=== PATIENT | male | born 1985 | race Caucasian/White ===

== ENCOUNTER 2017-01-17 06:07 | Day surgery (SDC) | payer OTHER ==
[2017-01-17] MEDS ORDERED: LACTATED RINGERS 1,000 ML IV ONE (07:07)
--- NOTE | 2017-01-17 07:28 | HISTORY & PHYSICAL EXAMINATION ---
HPI - History of Present Illness HPI Comment/Other: Since his last visit he has had one flare up but it resolved spontaneously. Current Meds: NONE Allergies: NONE Past Medical History: Reviewed history from 12/13/2016 and no changes required: Astigmatism Nicotine dependence Liotibial band- Fracture syndrome Pilonidal Cyst Past Surgical History: Reviewed history and no changes required: [place] Infection Removal Family History Summary: Reviewed history and no changes required: 12/14/2016 Mother (biol.) - Has a mother who is alive and well - Entered On: 12/13/2016 Father (biol.) - Has a father - Alcoholism - Entered On: 12/13/2016 Risk Factors: Smoked Tobacco Use: Current every day smoker Cigarettes: Yes -- 1/2 pack(s) per day,Drug use: no Alcohol use: yes Drinks per day: 0-2 Exercise: yes Times per week: 1-3 Type of Exercise: Weights Review of Systems See HPI Problems were reviewed with the patient during this visit. Medications were reviewed with the patient during this visit. No known meds. Allergies were reviewed with the patient during this visit. No known allergies. Physical Exam General: well developed, well nourished, in no acute distress Lungs: clear bilaterally to A & P Heart: regular rate and rhythm, S1, S2 without murmurs, rubs, gallops, or clicks Abdomen: bowel sounds positive; abdomen soft and non-tender without masses, organomegaly, or hernias noted Rectal: 5 midline pilonidal sinuses with the most proximal being connected to a surgical scar with some induration. No evidence of fluctuance or active infection. Pulses: pulses normal in all 4 extremities Extremities: no clubbing, cyanosis, edema, or deformity noted with normal full range of motion of all joints Problems: Problems Added: 1) Dx of Pilonidal cyst ([id number]) (ICD-685.1) Impression & Recommendations: Problem # 1: Pilonidal cyst with multiple recurrent pilonidal infections Will proceed with excision of pilonidal cyst. PMH/PSH - Past Medical History Cardiovascular: positive: None Respiratory: positive: None Endocrine/Autoimmune: positive: None GI: positive: None : positive: None HEENT: positive: None Psych: positive: None Musculoskeletal: positive: None Derm: positive: None MRSA Hx?: No Meds/Allgy - Home Medications Home Medications: Ambulatory Orders Medication Instructions Recorded Confirmed No Known Home Medications [No 01/10/17 01/10/17 Known Home Medications] - Allergies Allergies/Adverse Reactions: Allergies Allergy/AdvReac Type Severity Reaction Status Date / Time No Known Drug Allergies Allergy Verified 01/10/17 13:29 Exam - Vital Signs Vital Signs: Vital Signs x48h Temp Pulse Resp BP Pulse Ox 01/17/17 06:30 36 C L 64 16 128/69 98
[2017-01-17] MEDS ORDERED: ceFAZolin 1 GM VIAL IV ONE (07:45)
[2017-01-17] MEDS ORDERED: MIDAZOLAM 2 MG/2 ML VIAL IVP ONE (07:45)
[2017-01-17] MEDS ORDERED: SODIUM CHLORIDE 0.9% 10 ML VIAL IV ONE (07:45)
[2017-01-17] MEDS ORDERED: ROCURONIUM 50 MG/5 ML VIAL IVP ONE (07:45)
[2017-01-17] MEDS ORDERED: PROPOFOL 200 MG/20 ML VIAL IVP ONE (07:45)
[2017-01-17] MEDS ORDERED: ONDANSETRON 4 MG/2 ML VIAL IVP ONE (07:45)
[2017-01-17] MEDS ORDERED: SUCCINYLCHOLINE 200 MG/10 ML VIAL IVP ONE (07:45)
[2017-01-17] MEDS ORDERED: fentaNYL 100 MCG/2 ML VIAL IVP ONE (07:45)
[2017-01-17] MEDS ORDERED: LIDOCAINE-PF 2% 10 ML AMP SUBQ ONE (07:45)
[2017-01-17] MEDS ORDERED: DEXAMETHASONE 4 MG/ML VIAL IVP ONE (07:45)
[2017-01-17] MEDS ORDERED: LIDOCAINE 1%-EPI 1:100000 30 ML MDV SUBQ ONE ×2 (07:50)
[2017-01-17] MEDS ORDERED: BUPIVACAINE 0.5% PF 30 ML VIAL INFIL ONE ×2 (07:50)
[2017-01-17] MEDS ORDERED: KETOROLAC 15 MG/ML VIAL ONE (08:46)
[2017-01-17] MEDS ORDERED: oxyCOD/ACETAMIN 5 MG/325 MG TABLET PO ONE (09:05)
[2017-01-17 09:29] VITALS: BP 122/66
--- NOTE | 2017-01-17 12:27 | OPERATIVE REPORT ---
DATE OF SURGERY: 01/17/2017 00:00:00 SURGEON: Dr. Cruz. PROCEDURE: Excision of pilonidal cyst. INDICATION FOR PROCEDURE: This is a 31-year-old male who presents with recurrent pilonidal cyst. He h as had 1 previous surgical excision for such. PREOPERATIVE DIAGNOSIS: Recurrent pilonidal cyst. POSTOPERATIVE DIAGNOSIS: Recurrent pilonidal cyst. FINDINGS: After obtaining informed consent from the patient, he was brought into the operating room a nd intubated by anesthesia. He was positioned in the prone position. He was administered 2 grams of A ncef. He was then prepped and draped in the usual sterile fashion and a time-out was taken according to protocol. Using an 11 blade, the pilonidal cysts were circumferentially dissected out just around their openings and moving superficial area of the cysts. There were approximately 6 cysts, all locate d in the mid line. On the inferior aspect, a few of the cysts were located in such proximity that the y had to be resected together, creating a slightly wider opening. I then made a longitudinal incision to the left of the gluteal mid line and deepened this down through the subcutaneous tissue in order to curettage the base of the cysts from this incision. The bases were curettaged down to the level of the bone, removing this tissue. After satisfactory curettage of all cysts, the openings were irrigat ed and hemostasis was achieved with electrocautery. The pilonidal cyst cavities were then packed with 1/4 inch Iodoform packing, 60 mL of local anesthetic was utilized. The lateral incision was then zenon sed with interrupted 4-0 Vicryl sutures. Bacitracin was applied and dry gauze applied. the patient wa s extubated and taken to the recovery room in stable condition. ESTIMATED BLOOD LOSS: Minimal. SPECIMENS: None. COMPLICATIONS: None. JOB #: [id number] EXT JOB #:[id number]
== END 2017-01-17 06:08 | disposition home or self-care (01) ==
LOC: SDS 06:07
PROVIDERS: ATTEND Surgery
PROC: 0JB90ZZ Excision of Buttock Subcutaneous Tissue and Fascia, Open Approach (ICD-10-PCS; principal; 2017-01-17 07:30)
DX: L05.91 Pilonidal cyst without abscess (principal); F17.210 Nicotine dependence, cigarettes, uncomplicated; Z81.1 Family history of alcohol abuse and dependence
CPT/HCPCS: 11772; A9270; J7120